=== PATIENT | male | born 1970 | race Caucasian/White ===

== ENCOUNTER 2017-06-12 16:39 | Emergency (ER) | payer OTHER ==
[~2017-06-12] VITALS: Ht 180.3 cm; Wt 105.2 kg
[2017-06-12] MEDS ORDERED: PROAIR HFA8.5 GM INH (19:06)
[2017-06-12] MEDS ORDERED: MEDROL DOSEPAK4 MG PO (19:06)
[2017-06-12] MEDS ORDERED: BROMFED DM COU118 M2 PO (19:06)
== END 2017-06-12 19:16 | disposition home or self-care (01) ==
LOC: ED 16:39
DX: J40 Bronchitis, not specified as acute or chronic (principal)

== ENCOUNTER → 2018-02-13 | Outpatient (CLI) | payer OTHER ==
[~2018-02-13] MED LIST: BROMFED DM COU118 M2 PO; MEDROL DOSEPAK4 MG PO; PROAIR HFA8.5 GM INH
[2018-02-13 13:35] LABS: ALKALINE PHOSPHATASE 80 U/L (45-117); BUN 17 mg/dl (7-24); CHLORIDE 102 mmol/L (98-107); CREATININE 1.11 mg/dL (0.70-1.30); GAMMA GLUTAMYL TRANSPEPTIDASE 230 U/L (15-85); POTASSIUM 3.5 mmol/L (3.5-5.1); SGOT/AST 26 IU/L (3-35); SGPT/ALT 25 U/L (12-78); SODIUM 136 mmol/L (136-145)
== END | disposition home or self-care (01) ==
LOC: LAB 12:21
PROVIDERS: Internal Medicine
DX: I10 Essential (primary) hypertension (principal); F10.10 Alcohol abuse, uncomplicated

== ENCOUNTER 2018-07-11 13:25 | Emergency (ER) | payer OTHER ==
[~2018-07-11] VITALS: Wt 108.9 kg
--- NOTE | ~2018-07-11 | EKG ---
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
--- NOTE | ~2018-07-11 | EKG ---
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
[2018-07-11 13:32] VITALS: BP 153/102
[2018-07-11 13:39] LABS: BASO # 0.1 10*3/uL (0.0-0.1); BASO % 0.7 % (0.0-1.0); EOS # 0.3 10*3/uL (0.0-0.4); EOS % 3.8 % (1.0-4.0); HEMATOCRIT 48.9 % (42.0-52.0); HEMOGLOBIN 16.6 g/dl (14.0-18.0); LYMPH # 2.5 10*3/uL (1.3-4.4); LYMPH % 34.2 % (27.0-41.0); MEAN CELL VOLUME 89.7 fl (80.0-94.0); MEAN CORPUSCULAR HGB 30.5 pg (27.0-31.0); MEAN CORPUSCULAR HGB CONC 33.9 g/dl (33.0-37.0); MEAN PLATELET VOLUME 8.8 fl (9.6-12.3); MONO # 0.8 10*3/uL (0.1-1.0); MONO % 10.2 % (3.0-9.0); NEUT # 3.7 10*3/uL (2.3-7.9); NEUT % 50.8 % (47.0-73.0); PLATELET COUNT AUTOMATED 295 10*3/uL (130-400); RED BLOOD COUNT 5.45 10*6/uL (4.50-5.90); RED CELL DISTRI WIDTH 12.9 % (0-14.5); WHITE BLOOD COUNT 7.4 10*3/uL (4.8-10.8)
[2018-07-11 13:47] LABS: ACT PARTIAL THROMBO TIME 24.1 SECONDS (20.8-31.5); INTERNATIONAL NORM RATIO 0.9 (2.0-3.5)
[2018-07-11 14:05] LABS: ALBUMIN 4.2 gm/dl (3.1-4.5); ALKALINE PHOSPHATASE 87 U/L (45-117); BUN 16 mg/dl (7-24); CHLORIDE 102 mmol/L (98-107); CREATININE 1.06 mg/dL (0.70-1.30); POTASSIUM 3.9 mmol/L (3.5-5.1); SGOT/AST 16 IU/L (3-35); SGPT/ALT 23 U/L (12-78); SODIUM 136 mmol/L (136-145); TOTAL PROTEIN 8.3 gm/dL (6.4-8.2)
[2018-07-11 14:10] LABS: TROPONIN I < 0.015 ng/ml (<0.045)
[2018-07-11 14:17] VITALS: BP 135/85
--- NOTE | 2018-07-11 15:10 | NUR ---
NO CHEST PAIN PER PATIENT.
[2018-07-11 16:05] VITALS: BP 138/88
--- NOTE | 2018-07-11 16:10 | NUR ---
PT WILL SIGN OUT AMA AFTER 2ND TROPONIN.
[2018-07-11 16:42] VITALS: BP 146/82
--- NOTE | 2018-07-11 17:35 | NUR ---
STILL NO CHEST PAIN PER PATIENT.
--- NOTE | 2018-07-11 17:37 | NUR ---
PT SIGNING OUT AMA AT THIS TIME. HE IS AWARE TO COME BACK IF CHEST PAIN BECOMES WORSE OR ANY NEW SX OCCUR.
--- NOTE | 2018-07-11 17:47 | NUR ---
The patient, MANUEL ELMORE, 48, 72, [id number], [id number], presented to the Emergency Department at 1355. The patient's Chief Complaint was CHEST PAIN. The patient subsequently left "Against Medical Advice" at 1748. Treatment completed included VITALS, EKG, LAB REVIEW IV START, WET POUR MIXER, XRAY , ASSESSMENT. . Possible complications and consequences of not following medical advice were clearly explained to the patient by Dr. ALFRED , and SHAMAR RN. Assessment of the patient's competence, for making the decision to refuse completion of previously requested exam and treatment, includes alert and oriented. Attempts WERE made to get patient involved in persuading the patient to accept, Dr. TIMA WEN,[facility], the physician's recommendations. Discussion included NEED AND IMPORTANCE FOR ADMISSION. . The patient's response was WANTING TO SIGN OUT AND NOT BE ADMITTED . Family/friends who witnessed the discussion includes ONLY PATIENT . Signatures WERE requested. The patient DID sign the chart; this was witnessed by SHAMAR DIAZ. The patient's reason for departing, prior to completion of treatment was "refuses to be admitted". The patient's disposition is dc against medical advice, to the care of self. Arrangements have been made for the ED staff to "Call Back" the patient the following day, to inquire about the patient's medical status and encourage MANUEL ELMORE, to seek medical attention, if this has not been completed. [facility]
== END 2018-07-11 17:35 | disposition left against medical advice (07) ==
LOC: ED 13:25 → EDHOLD 14:36 → ED 14:36 → 5E 15:11 → EDHOLD 15:11 → 5E 15:11 → ED 17:35
PROVIDERS: Emergency Medicine
DX: R07.89 Other chest pain (principal); I10 Essential (primary) hypertension

== ENCOUNTER → 2021-02-07 | Outpatient (CLI) | payer OTHER | END | disposition home or self-care (01) | LOC: COVID19 16:36 | PROVIDERS: ATTEND Family Medicine | DX: U07.1 COVID-19 (principal) ==

== ENCOUNTER 2021-07-12 06:58 | Emergency (ER) | payer OTHER | END 2021-07-12 07:47 | disposition home or self-care (01) | LOC: ED 06:58 | DX: S30.0XXA Contusion of lower back and pelvis, initial encounter (principal); W18.39XA Other fall on same level, initial encounter; Y93.89 Activity, other specified; Y92.89 Other specified places as the place of occurrence of the external cause; Y99.8 Other external cause status ==

== ENCOUNTER 2024-12-09 13:22 | Emergency (ER) | payer SELFPAY ==
[~2024-12-09] VITALS: Ht 175.2 cm; Wt 106.6 kg
[2024-12-09] MEDS ORDERED: PREDNISONE20 M1 PO (15:28)
== END 2024-12-09 15:39 | disposition home or self-care (01) ==
LOC: ED 13:22
DX: M19.011 Primary osteoarthritis, right shoulder (principal); I10 Essential (primary) hypertension; W10.8XXA Fall (on) (from) other stairs and steps, initial encounter; Y93.89 Activity, other specified; Y92.89 Other specified places as the place of occurrence of the external cause; Y99.8 Other external cause status